=== PATIENT | male | born 1965 | race Caucasian/White ===

== ENCOUNTER 2020-09-15 00:17 | Day surgery (SDCO) | payer OTHER ==
[~2020-09-15] VITALS: Ht 178 cm; Wt 128.0 kg
[2020-09-15 00:52] LABS: BASOPHIL 0.2 % (0-2); EOSINOPHIL 0 % (0-5); HCT 45.7 % (42.0-52.0); HGB 16.2 g/dl (13.2-18.0); LYMPHOCYTE 6.4 % (15-48); MCH 30.7 pg (25.0-31.0); MCHC 35.4 g/dL (32.0-36.0); MCV 86.6 fL (78.0-100.0); MONOCYTE 7.4 % (0-12); MPV 8.2 fL (6.0-9.5); NEUTROPHIL 85.4 % (41-80); NRBC 0; PLT 321 K/uL (150-400); RBC 5.28 M/uL (4.70-6.00); RDW 13.3 % (11.5-14.0); WBC 22.5 K/uL (4.0-10.5)
[2020-09-15 01:02] LABS: INR 1.42 (0.9-1.2); PROTHROMBIN TIME 16.5 SECONDS (11.4-13.6)
[2020-09-15 01:10] LABS: ALBUMIN 3.3 g/dL (3.4-5.0); BILIRUBIN - TOTAL 2.9 mg/dL (0.2-1.0); BUN/CREAT RATIO (CALC) 9.9 RATIO; CREATININE 0.91 mg/dL (0.67-1.17); GLOBULIN (CALCULATION) 3.9 g/dL; POTASSIUM 3.5 mmol/L (3.5-5.1); TOTAL PROTEIN 7.2 g/dL (6.4-8.2)
[2020-09-15 01:30] LABS: LACTIC ACID 2.4 mmol/L (0.4-1.9)
[2020-09-15 01:49] LABS: BILIRUBIN NEGATIVE (NEGATIVE); BLOOD TRACE-INTACT Ery/uL (NEGATIVE); CLARITY CLEAR (CLEAR); COLOR YELLOW (YELLOW); GLUCOSE (U) NORMAL (NORMAL); LEUKOCYTES NEGATIVE Leu/uL (NEGATIVE); NITRITE NEGATIVE (NEGATIVE); PROTEIN NEGATIVE (NEGATIVE); UROBILINOGEN 0.2 mg/dL (0.2-1.0); pH 6.5 (5.0-9.0)
[2020-09-15 01:53] LABS: SQUAMOUS EPITHELIAL CELLS RARE; URINARY WBC RARE
[2020-09-15] MEDS ORDERED: BENAZEPRIL HCL20 MG PO (05:29)
[2020-09-15] MEDS ORDERED: HYDROCHLOROTH12.5 M2 PO (05:30)
[2020-09-15] MEDS ORDERED: FEBUXOSTAT40 MG PO (05:30)
[2020-09-15] MEDS ORDERED: ZETIA10 MG PO (05:30)
[2020-09-15 08:58] LABS: BASOPHIL 0.1 % (0-2); EOSINOPHIL 0 % (0-5); HCT 44.8 % (42.0-52.0); HGB 15.5 g/dl (13.2-18.0); LYMPHOCYTE 6.3 % (15-48); MCH 30.3 pg (25.0-31.0); MCHC 34.6 g/dL (32.0-36.0); MCV 87.7 fL (78.0-100.0); MONOCYTE 7.2 % (0-12); MPV 8.2 fL (6.0-9.5); NEUTROPHIL 85.8 % (41-80); NRBC 0; PLT 270 K/uL (150-400); RBC 5.11 M/uL (4.70-6.00); RDW 13.3 % (11.5-14.0); WBC 21.4 K/uL (4.0-10.5)
[2020-09-15 09:13] LABS: ALBUMIN 2.8 g/dL (3.4-5.0); BILIRUBIN - TOTAL 2.7 mg/dL (0.2-1.0); BUN/CREAT RATIO (CALC) 9.9 RATIO; CREATININE 0.91 mg/dL (0.67-1.17); GLOBULIN (CALCULATION) 3.8 g/dL; POTASSIUM 3.9 mmol/L (3.5-5.1); TOTAL PROTEIN 6.6 g/dL (6.4-8.2)
--- NOTE | 2020-09-16 02:30 | NUR ---
09/15/20 2200 Patient up and ambulated in wheeler without oxygen. Sat 93% when return to room. Oxygen remained off and patient without complaints.
[2020-09-16 06:20] LABS: ALBUMIN 2.5 g/dL (3.4-5.0); BILIRUBIN - TOTAL 0.8 mg/dL (0.2-1.0); BUN/CREAT RATIO (CALC) 13.7 RATIO; CREATININE 1.17 mg/dL (0.67-1.17); POTASSIUM 4.6 mmol/L (3.5-5.1); TOTAL PROTEIN 6.5 g/dL (6.4-8.2)
[2020-09-16 09:58] LABS: HCT 44.2 % (42.0-52.0); HGB 14.9 g/dl (13.2-18.0); MCH 30.5 pg (25.0-31.0); MCHC 33.7 g/dL (32.0-36.0); MCV 90.4 fL (78.0-100.0); MPV 8.6 fL (6.0-9.5); RBC 4.89 M/uL (4.70-6.00); RDW 13.6 % (11.5-14.0); WBC 15.8 K/uL (4.0-10.5)
[2020-09-16 10:31] LABS: ALBUMIN 2.6 g/dL (3.4-5.0); BILIRUBIN - TOTAL 0.9 mg/dL (0.2-1.0); BUN/CREAT RATIO (CALC) 14.5 RATIO; CREATININE 1.17 mg/dL (0.67-1.17); GLOBULIN (CALCULATION) 4.2 g/dL; POTASSIUM 4.3 mmol/L (3.5-5.1); TOTAL PROTEIN 6.8 g/dL (6.4-8.2)
[2020-09-16] MEDS ORDERED: AUGMENTIN 500-1 EACH PO ×2 (12:56→13:14)
[2020-09-16] MEDS ORDERED: LACTINEX1 EACH PO (12:59)
[2020-09-16] MEDS ORDERED: NORCO 5-325 TA1 EACH PO (13:49)
== END 2020-09-16 14:45 | disposition home or self-care (01) ==
LOC: FER 00:17 → FMS 04:07
PROVIDERS: Emergency Medicine; Nurse Practitioner; Surgery; ADMIT Allergy & Immunology Allergy
DX: K81.2 Acute cholecystitis with chronic cholecystitis (principal); I10 Essential (primary) hypertension; E78.5 Hyperlipidemia, unspecified; C61 Malignant neoplasm of prostate; M10.9 Gout, unspecified; K21.9 Gastro-esophageal reflux disease without esophagitis; E66.01 Morbid (severe) obesity due to excess calories; Z68.41 Body mass index [BMI] 40.0-44.9, adult; Z79.891 Long term (current) use of opiate analgesic; Z79.899 Other long term (current) drug therapy; Z20.822 Contact with and (suspected) exposure to COVID-19
CPT/HCPCS: 36415; 71045; 76705; 80053; 81001; 82150; 83605; 83690; 84484; 85025; 85610; 87070; 87075; 93005; C9113; G0378; J1100; J1170; J2250; J2405; J2543; J2704; J2710; J3010; J3480; J7030; J7120; Q9967; U0002